=== PATIENT | female | born 1935 | race Caucasian/White ===

== ENCOUNTER 2018-05-08 14:39 | Outpatient (CLI) | payer MEDICARE, OTHER | END 2018-05-08 14:40 | disposition home or self-care (01) | LOC: BICMAMMO 14:39 | PROVIDERS: ATTEND Internal Medicine | DX: Z12.31 Encounter for screening mammogram for malignant neoplasm of breast (principal); R92.1 Mammographic calcification found on diagnostic imaging of breast; Z85.038 Personal history of other malignant neoplasm of large intestine | CPT/HCPCS: 77063; 77067 ==

== ENCOUNTER 2018-07-20 16:00 | Emergency (ER) | payer MEDICARE, OTHER ==
--- NOTE | 2018-07-20 17:01 | RAD ---
LEFT KNEE FOUR VIEWS: 07/20/18 HISTORY: 83-year-old female with history of fall today on the left knee. There is a comminuted essentially nondisplaced fracture involving the mid portion of the patella wit h evidence for suprapatellar joint fluid and distention. 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 IMPRESSION: Comminuted nondisplaced mostly transverse type patellar fracture with joint effusion and distention o f the suprapatellar recess. POS: [facility]
== END 2018-07-20 17:26 | disposition home or self-care (01) ==
LOC: SCSER 16:00
DX: S82.045A Nondisplaced comminuted fracture of left patella, initial encounter for closed fracture (principal); I10 Essential (primary) hypertension; E78.5 Hyperlipidemia, unspecified; E03.9 Hypothyroidism, unspecified; Z79.899 Other long term (current) drug therapy; Z79.82 Long term (current) use of aspirin; X58.XXXA Exposure to other specified factors, initial encounter

== ENCOUNTER 2019-05-31 14:06 | Emergency (ER) | payer MEDICARE, OTHER ==
--- NOTE | 2019-05-31 15:37 | CT ---
Exam: CT brain PROVIDED CLINICAL HISTORY: Head injury COMPARISON: None FINDINGS: The ventricular system is normal in size and morphology. No evidence for intracranial hemorrhage or mass effect. The extracranial soft tissues and osseous structures demonstrate no evidence for an acute abnormality. Chronic microvascular ischemic changes are seen involving the cerebral white matte r. IMPRESSION: No evidence for intracranial hemorrhage or mass effect.
--- NOTE | 2019-05-31 15:38 | CT ---
EXAM: CT cervical spine PROVIDED CLINICAL HISTORY: Injury COMPARISON: None FINDINGS: No evidence for fracture or traumatic subluxation. No prevertebral soft tissue swelling apparent. Vi sualized lung apices appear clear. IMPRESSION: No evidence for fracture or traumatic subluxation.
--- NOTE | 2019-05-31 16:07 | RAD ---
EXAM: XR Knee Rt 4 View STANDARD PROVIDED CLINICAL HISTORY: Pain status post injury COMPARISON: None FINDINGS: Comminuted, nondistracted patellar fracture with associated joint effusion. Chondrocalcinosis. No add itional fracture is evident. Diffuse regional osteopenia. IMPRESSION: Comminuted nondistracted patellar fracture.
[2019-05-31] MEDS ORDERED: Bacitracin 1 PK ONE (16:51)
== END 2019-05-31 17:00 | disposition home or self-care (01) ==
LOC: SCSER 14:06
DX: S82.044A Nondisplaced comminuted fracture of right patella, initial encounter for closed fracture (principal); S00.511A Abrasion of lip, initial encounter; E03.9 Hypothyroidism, unspecified; E78.5 Hyperlipidemia, unspecified; Z79.82 Long term (current) use of aspirin; Z85.038 Personal history of other malignant neoplasm of large intestine; Z79.899 Other long term (current) drug therapy; W18.00XA Striking against unspecified object with subsequent fall, initial encounter
CPT/HCPCS: 70450; 72125

== ENCOUNTER 2019-10-31 13:36 | Outpatient (CLI) | payer MEDICARE, OTHER ==
--- NOTE | 2019-10-31 15:38 | MRI ---
MRI of thecervical spine: 10/31/2019 COMPARISON:None available HISTORY:Worsening cervical radiculopathy over 6 months despite conservative management, pain with jorge ateral upper extremity radiculopathy TECHNIQUE: Multiplanar multisequence MR imaging of thecervical spine without contrast Findings:The sagittal STIR imaging demonstrates no focal area of osseous marrow edema. No prevertebra l soft tissue swelling. Anterolisthesis at C7-T1 noted, measuring 3 mm. C2-3: Disc space narrowing with disc desiccation and minimal disc bulge. Facet and uncovertebral oste ophyte formation on the left causes moderate/severe left neural foraminal stenosis. No central canal or right neural foraminal stenosis. C3-4: Disc space narrowing with disc desiccation and mild disc bulge causing mild central canal steno sis. Bilateral facet and uncovertebral osteophyte formation, left greater than right, with severe left and mild right neural foraminal stenosis. C4-5: There is disc space narrowing with disc desiccation and disc bulge partially effacing the ventr al thecal sac with mild central canal stenosis. Bilateral facet and uncovertebral osteophyte formation with moderate/severe left and moderate right neural foraminal stenosis. C5-6: Disc space narrowing with disc desiccation and mild disc bulge partially effacing the ventral t hecal sac and causing moderate central canal stenosis. Moderate/severe bilateral neural foraminal stenosis on the basis of facet and uncovertebral osteophyte formation. C6-7: Disc space narrowing with disc desiccation and degenerative endplate change. Mild disc bulge. M ild central canal stenosis. Moderate bilateral neural foraminal stenosis on the basis of facet and uncovertebral osteophyte formation. C7-T1: Bilateral facet hypertrophy with mild bilateral neural foraminal stenosis. Disc space narrowin g and disc desiccation with mild disc bulge. No significant central canal stenosis. No focal abnormal cervical cord signal. IMPRESSION:Prominent multilevel cervical spine degenerative change as above.
== END 2019-10-31 13:37 | disposition home or self-care (01) ==
LOC: SCSMRI 13:36
PROVIDERS: ATTEND Internal Medicine
DX: M47.22 Other spondylosis with radiculopathy, cervical region (principal)
CPT/HCPCS: 72141

== ENCOUNTER 2023-12-04 14:38 | Outpatient (CLI) | payer MEDICARE, OTHER | END 2023-12-04 14:39 | disposition home or self-care (01) | LOC: BICMRI 14:38 | PROVIDERS: ATTEND Nurse Practitioner Adult Health | DX: M54.50 Low back pain, unspecified (principal); R93.2 Abnormal findings on diagnostic imaging of liver and biliary tract; S32.011A Stable burst fracture of first lumbar vertebra, initial encounter for closed fracture; M47.816 Spondylosis without myelopathy or radiculopathy, lumbar region; R60.0 Localized edema | CPT/HCPCS: 72148 ==

== ENCOUNTER 2024-08-21 09:51 | Day surgery (SDC) | payer MEDICARE, OTHER ==
[~2024-08-21 09:51] MED LIST: ROMOSOZUMAB-AQQG 105 MG/1.17 ML SYR SQ SCH
[2024-08-21 10:09] VITALS: BP 163/70; TEMP 97.5
[2024-08-21] MEDS: ROMOSOZUMAB-AQQG 105 MG/1.17 ML SYR SQ SCH (10:11)
== END 2024-08-21 10:42 | disposition home or self-care (01) ==
LOC: ONC/OP 09:51
PROVIDERS: ATTEND Internal Medicine
DX: M80.00XD Age-related osteoporosis with current pathological fracture, unspecified site, subsequent encounter for fracture with routine healing (principal)
CPT/HCPCS: 96372; J3111

== ENCOUNTER 2024-09-23 08:47 | Day surgery (SDC) | payer MEDICARE, OTHER ==
[2024-09-23] MEDS: ROMOSOZUMAB-AQQG 105 MG/1.17 ML SYR SQ SCH (09:17)
[2024-09-23 11:49] VITALS: BP 160/74; TEMP 98.3
== END 2024-09-23 11:53 | disposition home or self-care (01) ==
LOC: ONC/OP 08:47
PROVIDERS: ATTEND Internal Medicine
DX: M80.00XA Age-related osteoporosis with current pathological fracture, unspecified site, initial encounter for fracture (principal)
CPT/HCPCS: 96401; J3111